=== PATIENT | male | born 1960 | race Caucasian/White ===

== ENCOUNTER 2017-03-23 20:20 | Emergency (ER) | payer OTHER ==
[~2017-03-23] VITALS: Ht 175.3 cm; Wt 77.1 kg
[2017-03-23 20:53] LABS: ABSOLUTE BASOPHIL COUNT 0.1 /CUMM (0.0-0.2); ABSOLUTE EOSINOPHIL COUNT 0.2 /CUMM (0.0-0.7); ABSOLUTE GRANULOCYTE CT 10.3 /CUMM (1.4-6.5); ABSOLUTE LYMPH COUNT 2.9 /CUMM (1.2-3.4); ABSOLUTE MONOCYTE COUNT 1.2 /CUMM (0.10-0.60); BASOPHIL % 0.6 % (0.0-2.0); EOSINOPHIL % 1.2 % (0-5); GRANULOCYTE % 70.2 % (42.2-75.2); MEAN CORPUSCULAR HGB 29.8 PG (27.0-31.0); MEAN CORPUSCULAR HGB CONC 33.4 G/DL (33.0-37.0); MEAN CORPUSCULAR VOLUME 89.3 FL (80.0-94.0); MEAN PLATELET VOLUME 7.3 FL (7.4-10.4); PLATELET COUNT 336 /CUMM (130-400); RBC DISTRIBUTION WIDTH 12.6 % (11.5-14.5); RED BLOOD CELL CT 5.26 /CUMM (4.70-6.10); WHITE BLOOD CELL COUNT 14.7 /CUMM (4.8-10.8)
[2017-03-23] MEDS ORDERED: AUGMENTIN 875-1 EACH PO (21:24)
--- NOTE | 2017-03-23 21:24 | ED GI/GU/ABDOMINAL COMPLAINT ---
History of Present Illness General Chief Complaint: General Adult Stated Complaint: SIB MD MOREL FOR DIVERTICULITIS? Source: patient, family, old records Exam Limitations: no limitations Vital Signs & Intake/Output Vital Signs & Intake/Output Vital Signs Date Time Temp Pulse Resp B/P B/P Pulse O2 O2 Flow FiO2 Mean Ox Delivery Rate 03/23 2217 98.0 80 17 138/72 99 Room Air 03/23 2201 Room Air 03/23 2026 98.6 89 18 144/84 98 Room Air ED Intake and Output 03/24 0000 03/23 1200 Intake Total Output Total Balance Patient 170 lb Weight Weight Reported by Patient Measurement Method Allergies Coded Allergies: NO KNOWN ALLERGIES (03/31/11) Reconcile Medications Amoxicillin/Potassium Clav (Augmentin 875-125 Tablet) 875 MG-125 MG TABLET 1 TAB PO BID diverticulitis Dicyclomine Hydrochloride (Bentyl) 10 MG CAPSULE 1 CAP PO TID PRN abdominal pain Simvastatin (Simvastatin*) 40 MG TABLET 1 TAB PO QPM CHOLESTEROL (Reported) Triage Note: PT TO ER C/C LLQ PAIN X 2 DAYS, HX OF DIVERTICULITIS IN PAST, STATES FEELS SAME. 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 DENIES N/V/D Triage Nurses Notes Reviewed? yes Onset: yesterday Duration: day(s):, constant Timing: recent history Quality/Severity: aching, moderate Location: left lower quadrant Radiation: no radiation Activities at Onset: none Prior Abdominal Problems: similar symptoms Past Sexual History: Unobtainable at this time Modifying Factors: Worsens With: palpation. Associated Symptoms: abdominal pain HPI: 1 day prior to admission patient complains of left lower quadrant pain moderate achy constant nonradiating worse with palpation occurring after eating nuts. The pain is similar to previous episode of diverticulitis. He felt he had a fever earlier and took ibuprofen. He denies chills nausea vomiting diarrhea chest pain cough shortness of breath headache dysuria rash bleeding. Past History Travel History Traveled to [place] past 21 day No Medical History Any Pertinent Medical History? see below for history Cardiovascular: hyperlipidemia Gastrointestinal: diverticulitis Surgical History Surgical History: non-contributory Psychosocial History What is your primary language Icelandic Tobacco Use: Never used Family History Hx Contributory? No Review of Systems Review of Systems Constitutional: Reports: see HPI, fever. EENTM: Reports: no symptoms. Respiratory: Reports: no symptoms. Cardiovascular: Reports: no symptoms. GI: Reports: see HPI, abdominal pain. Genitourinary: Reports: no symptoms. Musculoskeletal: Reports: no symptoms. Skin: Reports: no symptoms. Neurological/Psychological: Reports: no symptoms. Hematologic/Endocrine: Reports: no symptoms. Immunologic/Allergic: Reports: no symptoms. All Other Systems: Reviewed and Negative Physical Exam Physical Exam General Appearance: well developed/nourished, alert, awake, anxious, mild distress, obese Head: atraumatic, normal appearance Eyes: Bilateral: normal appearance, PERRL, EOMI, normal inspection. Ears, Nose, Throat, Mouth: hearing grossly normal, moist mucous membrane Neck: normal inspection, supple, full range of motion, normal alignment, no midline tenderness Respiratory: normal breath sounds, chest non-tender, no respiratory distress, quiet respiration, lungs clear Cardiovascular: regular rate/rhythm, normal peripheral pulses, norml femoral pulses equa Peripheral Pulses: 4+ carotid (R), 4+ carotid (L) Gastrointestinal: normal bowel sounds, soft, tenderness (mild) Male Genitals: normal genitalia Back: normal inspection, normal range of motion, no vertebral tenderness Extremities: normal range of motion, no ligament instability Neurologic/Psych: no motor/sensory deficits, awake, alert, oriented x 3, normal gait, normal mood/affect, substance abuse counselor II-XII nml as tested Skin: intact, normal color, warm/dry Core Measures ACS in differential dx? No Sepsis Present: No Sepsis Focused Exam Completed? No Progress Differential Diagnosis: diverticulitis, gastritis Plan of Care: Orders Procedure Date/time Status URINALYSIS 03/23 2041 Complete LIPASE 03/23 2022 Complete COMPREHENSIVE METABOLIC PANEL 03/23 2022 Complete CBC WITHOUT DIFFERENTIAL 03/23 2022 Complete Laboratory Tests 03/23/172040: Urine Color YEL, Urine Clarity CLEAR, Urine pH 6.0, Ur Specific [place] >= 1.030 , Urine Protein NEG, Urine Ketones NEG, Urine Nitrite NEG, Urine Bilirubin NEG, Urine Urobilinogen 0.2, Ur Leukocyte Esterase NEG, Ur Microscopic SEDIMENT EXAMINED, Urine RBC 1-3, Urine WBC RARE, Ur Epithelial Cells RARE, Urine Bacteria RARE H, Urine Mucus FEW, Urine Hemoglobin SMALL H, Urine Glucose NEG 03/23/172039: Anion Gap 15, Estimated GFR > 60, BUN/Creatinine Ratio 18.9, Glucose 95, Calcium 9.8, Total Bilirubin 1.4 H, AST 20, ALT 37, Alkaline Phosphatase 56, Total Protein 7.4, Albumin 4.7, Globulin 2.7, Albumin/Globulin Ratio 1.7, Lipase 130, CBC w Diff NO MAN DIFF REQ, RBC 5.26, MCV 89.3, MCH 29.8, RDW 12.6, MPV 7.3 L, Gran % 70.2, Lymphocytes % 19.7 L, Monocytes % 8.3, Eosinophils % 1.2, Basophils % 0.6, Absolute Granulocytes 10.3 H, Absolute Lymphocytes 2.9, Absolute Monocytes 1.2 H, Absolute Eosinophils 0.2, Absolute Basophils 0.1, PUBS MCHC 33.4 Initial ED EKG: none Comments: Patient declines imaging secondary to costs at this time. Departure Departure Time of Disposition: 2123 Disposition: HOME OR SELF CARE Condition: Stable Clinical Impression Primary Impression: Diverticulitis Qualifiers: Diverticulitis site: unspecified part of intestinal tract Diverticulitis bleeding: without bleeding Diverticulitis complication: unspecified complication status Qualified Code: K57.92 - Diverticulitis of intestine, part unspecified, without perforation or abscess without bleeding Referrals: Augustina FREIRE,Harpreet (PCP/Family) Departure Forms: Customer Survey General Discharge Information Prescriptions: Current Visit Scripts Amoxicillin/Potassium Clav (Augmentin 875-125 Tablet) 1 TAB PO BID #20 TAB Dicyclomine Hydrochloride (Bentyl) 1 CAP PO TID PRN abdominal pain #30 CAP
[2017-03-23] MEDS ORDERED: SIMVASTATIN40 M1 PO (21:32)
[2017-03-23] MEDS ORDERED: BENTYL10 M1 PO (21:51)
[2017-03-23 22:18] VITALS: BP 138/72
== END 2017-03-23 22:45 ==
LOC: ERH 20:20
PROVIDERS: Physician Assistant Medical
DX: K57.92 Diverticulitis of intestine, part unspecified, without perforation or abscess without bleeding (principal)
CPT/HCPCS: 81001; 96374